=== PATIENT | female | born 1945 | race Two or more races ===

== ENCOUNTER 2018-04-25 20:01 | Inpatient (IN) | payer OTHER ==
[~2018-04-25] VITALS: Ht 160 cm; Wt 89.8 kg
--- NOTE | 2018-04-25 20:15 | NUR ---
Unable to reconcile home medications. No information available, pt unable to provide information.
[2018-04-25] MEDS ORDERED: CIPROFLOXACIN HCL 250 MG TABLET PO ONE (20:30)
[2018-04-25] MEDS ORDERED: CIPROFLOXACIN HCL 250 MG TABLET ONE (20:35)
--- NOTE | 2018-04-25 20:37 | NUR ---
SENTURINE TO LAB ORDERED
[2018-04-25 20:44] LABS: *BILIRUBIN,URIN NEGATIVE (NEGATIVE); *BLOOD, URINE Trace-lysed (NEGATIVE); *CLARITY,URINE CLOUDY (CLEAR); *COLOR,URINE YELLOW (YELLOW); *KETONES,URINE NEGATIVE (NEGATIVE); *PROTEIN,URINE NEGATIVE (NEGATIVE); *UROBILINOGEN,URINE 0.2 E.U./dl (NORMAL); LEUKOCYTE ESTERASE ,URINE TRACE (NEGATIVE); NITRITE, URINE POSITIVE (NEGATIVE); PH,URINE 6.5 (5.0-8.0); UGLUCOSE NEGATIVE (NEGATIVE)
--- NOTE | 2018-04-25 20:46 | NUR ---
MEDICALLY CLEARED BY DR DC
[2018-04-25 20:57] LABS: BACTERIA,URINE MANY /HPF (NONE SEEN); MUCUS,URINE MODERATE /LPF (0-FEW); SQUAMOUS EPITHELIAL CELL,UR FEW /HPF (NONE SEEN)
--- NOTE | 2018-04-25 21:45 | NUR ---
TRANSFERED TO [facility] VIA WHEELCHAIR WITH NO DISTRESS NOTED
[2018-04-25] MEDS ORDERED: MAG HYDROX/AL HYDROX/SIMETH 30 ML LIQUID UDC PO PRN (22:00)
[2018-04-25] MEDS ORDERED: TEMAZEPAM 7.5 MG CAPSULE PO PRN (22:00)
[2018-04-25] MEDS ORDERED: MAGNESIUM HYDROXIDE 30 ML LIQUID UDC PO PRN (22:00)
[2018-04-25] MEDS ORDERED: LORAZEPAM 0.5 MG TABLET PO PRN (22:00)
[2018-04-25] MEDS ORDERED: ACETAMINOPHEN 325 MG TABLET PO PRN (22:00)
[2018-04-25 22:10] VITALS: BP 97/67
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
--- NOTE | 2018-04-26 06:00 | NUR ---
slept 6 hours, total. is now awake. assisted with AM care, and shower. no distress noted.
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
[2018-04-26 07:30] VITALS: BP 103/61
[2018-04-26] MEDS ORDERED: DEXTROSE 50% 50 ML DISP.SYRIN IV PRN (14:15)
[2018-04-26] MEDS: CEPHALEXIN MONOHYDRATE 500 MG CAPSULE PO SCH ×2 (14:25→21:32)
[2018-04-26] MEDS: BLOOD SUGAR DIAGNOSTIC 1 EACH STRIP VI SCH ×2 (16:13→21:44)
[2018-04-26 16:26] VITALS: BP 108/70
[2018-04-26] MEDS: INSULIN REGULAR, HUMAN 300 UNIT/3 ML VIAL SQ PRN ×2 (16:37→21:46)
--- NOTE | 2018-04-26 19:05 | NUR ---
PATIENT RECEIVED IN ROOM, FAMILY AT BEDSIDE. NO DISTRESS NOTED. ON KEFLEX 500MG BID FOR UTI. COMPLIANT WITH MEDICATIONS. BLOOD SUGAR 197 3 UNITS OF INSULIN COVERAGE GIVEN, WELL TOLERATED. ALL NEEDS ATTENDED AND ANTICIPATED. WILL CONTINUE TO MONITOR CLOSELY.
[2018-04-26 21:25] VITALS: BP 106/60
[2018-04-26] MEDS: BENZTROPINE MESYLATE 0.5 MG TABLET PO SCH (21:32)
[2018-04-26] MEDS: risperiDONE-M 0.5 MG TAB.RAPDIS PO SCH (21:32)
--- NOTE | 2018-04-26 22:00 | NUR ---
received to care, asleep, in bed, but easy to awaken. remains calm. compliant with medications and staff direction. as of 2199, she appears to be asleep. no distress noted. will continue to monitor closely.
[2018-04-27] MEDS: BLOOD SUGAR DIAGNOSTIC 1 EACH STRIP VI SCH ×4 (06:32→21:20)
--- NOTE | 2018-04-27 06:46 | NUR ---
slept 8.0 hours total.
[2018-04-27 07:00] LABS: BASOPHILS # (AUTO) 0.1 K/uL (0.0-8.0); BASOPHILS % (AUTO) 0.9 % (0.0-2.0); EOSINOPHILS # (AUTO) 0.3 K/uL (0.0-0.7); HEMATOCRIT 44.5 % (31.2-41.9); HEMOGLOBIN 15.1 g/dL (10.9-14.3); LYMPHOCYTES # (AUTO) 2.6 K/uL (20.0-40.0); LYMPHOCYTES % (AUTO) 43.6 % (20.5-51.5); MEAN CORPUSCULAR HEMOGLOBIN 30.7 uug (24.7-32.8); MEAN CORPUSCULAR HGB CONC 34 g/dL (32.3-35.6); MEAN CORPUSCULAR VOLUME 90.4 fL (75.5-95.3); MONOCYTES # (AUTO) 0.5 K/uL (2.0-10.0); MONOCYTES % (AUTO) 8.8 % (0.0-11.0); NEUTROPHILS # (AUTO) 2.5 K/uL (1.8-8.9); NEUTROPHILS % (AUTO) 41.7 % (38.5-71.5); PLATELET COUNT (AUTO) 181 K/uL (179-408); RED BLOOD CELL COUNT(AUTO) 4.92 MIL/uL (3.63-4.92); WHITE BLOOD COUNT (AUTO) 6.1 K/uL (3.8-11.8)
[2018-04-27 07:06] LABS: CARBON DIOXIDE 31 mmol/L (21-32); CHLORIDE 105 mmol/L (98-107); CREATININE 0.9 mg/dL (0.6-1.3); GLUCOSE 156 mg/dL (74-106); UREA NITROGEN, BLOOD 16 mg/dL (7-18)
[2018-04-27 07:30] VITALS: BP 116/71
[2018-04-27] MEDS: CEPHALEXIN MONOHYDRATE 500 MG CAPSULE PO SCH ×2 (08:46→20:15)
--- NOTE | 2018-04-27 10:30 | NUR ---
Gps/Disintegrator- Urine culture with E.coli , results and sensitivity reviewed w/ Ray Rowland IMAGING TECHNICIAN, bassem ok .
[2018-04-27] MEDS: INSULIN REGULAR, HUMAN 300 UNIT/3 ML VIAL SQ PRN ×2 (12:06→21:22)
--- NOTE | 2018-04-27 15:22 | NUR ---
Initial DC Plan: Patient currently lives at home with her daughter Renuka [[facility] [place] [address]; [phone]]. Patient's daughter stated she will roll picker patient when she is ready for discharge. SW will follow up with MD, patient, and patient's daughter to discuss most appropriate dsicharge plans. SW will form a safe and proper discharge.
--- NOTE | 2018-04-27 15:29 | NUR ---
Firearms Reporting: MYANOR submitted Mental Health Report to [facility] on 04/27.
[2018-04-27 15:44] VITALS: BP 128/62
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
[2018-04-27] MEDS: BENZTROPINE MESYLATE 0.5 MG TABLET PO SCH (20:15)
[2018-04-27] MEDS: risperiDONE-M 0.5 MG TAB.RAPDIS PO SCH (20:15)
[2018-04-27 20:29] VITALS: BP 119/66
[2018-04-28] MEDS: BLOOD SUGAR DIAGNOSTIC 1 EACH STRIP VI SCH ×4 (06:34→20:37)
--- NOTE | 2018-04-28 06:54 | NUR ---
Pt slept 8 hrs, calm and cooperative. Had shower in AM. Safety measures maintained.
--- NOTE | 2018-04-28 07:21 | NUR ---
BG 151. Endorsed to am nurse.
[2018-04-28 07:30] VITALS: BP 99/68
[2018-04-28] MEDS: INSULIN REGULAR, HUMAN 300 UNIT/3 ML VIAL SQ PRN ×4 (08:25→20:38)
[2018-04-28] MEDS: CEPHALEXIN MONOHYDRATE 500 MG CAPSULE PO SCH ×2 (08:27→20:36)
[2018-04-28 15:29] VITALS: BP 104/63
--- NOTE | 2018-04-28 17:41 | NUR ---
Gps/Bus Cleaner- Quiet, remains in her room most of the afternoon, guarded ,encouraged participation in her group tx.Patients' daughter Renuka called, was able to talked to the patient, will be in monday to visit .
[2018-04-28] MEDS: BENZTROPINE MESYLATE 0.5 MG TABLET PO SCH (20:36)
[2018-04-28] MEDS: risperiDONE-M 0.5 MG TAB.RAPDIS PO SCH (20:36)
[2018-04-29] MEDS: BLOOD SUGAR DIAGNOSTIC 1 EACH STRIP VI SCH ×4 (06:41→21:23)
[2018-04-29 07:30] VITALS: BP 105/60
[2018-04-29] MEDS: CEPHALEXIN MONOHYDRATE 500 MG CAPSULE PO SCH ×2 (08:21→21:22)
[2018-04-29] MEDS: INSULIN REGULAR, HUMAN 300 UNIT/3 ML VIAL SQ PRN ×3 (08:33→17:05)
[2018-04-29 15:33] VITALS: BP 113/80
--- NOTE | 2018-04-29 16:29 | NUR ---
Gps/Legal Records Manager- Remains quiet in her room, guarded , sitting on her chair most of the afternoon , noticed occ. blank stares, denies hearing voices.
[2018-04-29 20:00] VITALS: BP 110/68
[2018-04-29] MEDS: risperiDONE-M 0.5 MG TAB.RAPDIS PO SCH (21:22)
[2018-04-29] MEDS: BENZTROPINE MESYLATE 0.5 MG TABLET PO SCH (21:22)
--- NOTE | 2018-04-29 22:50 | NUR ---
RECEIVED PATIENT IN BED .SHE IS QUIET, GUARDED AND MILDLY WITHDRAWN.SHE ALTERNATES BETWEEN SITTING IN HER CHAIR AND LAYING DOWN IN BED. SHE DENIES HEARING VOICES. SHE IS COMPLIANT WITH HER ORAL MEDS BUT REFUSED TO TAKE HER INSULIN COVERAGE. RISK AND BENEFIT EXPLAINED. WILL CONTINUE TO MONITOR.
[2018-04-30] MEDS: INSULIN REGULAR, HUMAN 300 UNIT/3 ML VIAL SQ PRN ×5 (00:36→20:56)
--- NOTE | 2018-04-30 06:35 | NUR ---
SHE SLEPT INTERMITTENTLY FOR APPROX.5HRS. INITIALLY REFUSED HER INSULIN COVERAGE. SHE HOWEVER MADE NO COMPLIANT OF PAIN OR DISCOMFORT. WILL CONTINUE TO MONITOR
[2018-04-30] MEDS: BLOOD SUGAR DIAGNOSTIC 1 EACH STRIP VI SCH ×4 (06:48→20:29)
[2018-04-30 07:30] VITALS: BP 104/84
[2018-04-30] MEDS: CEPHALEXIN MONOHYDRATE 500 MG CAPSULE PO SCH ×2 (08:43→20:57)
[2018-04-30] MEDS ORDERED: risperiDONE-M 0.5 MG TAB.RAPDIS PO SCH ×2 (09:00→21:00)
[2018-04-30] MEDS ORDERED: risperiDONE-M 0.5 MG TAB.RAPDIS PO ONE (15:30)
[2018-04-30] MEDS: DIVALPROEX 125 MG TABLET.DR PO SCH (16:19)
[2018-04-30 16:20] VITALS: BP 129/82
[2018-04-30] MEDS ORDERED: DIVALPROEX 250 MG TABLET.DR PO SCH (17:00)
[2018-04-30 19:45] VITALS: BP 114/68
[2018-04-30] MEDS: BENZTROPINE MESYLATE 0.5 MG TABLET PO SCH (20:57)
[2018-04-30] MEDS: risperiDONE-M 0.5 MG TAB.RAPDIS PO SCH (20:57)
[2018-05-01] MEDS: BLOOD SUGAR DIAGNOSTIC 1 EACH STRIP VI SCH ×4 (06:35→21:20)
--- NOTE | 2018-05-01 07:09 | NUR ---
Pt SLEPT WELL THROUGHOUT THE NIGHT, WOKE UP TO SHOWER THIS MORNING. CONTINUES TO BE COMPLIANT AND COOPERATIVE. BLOOD SUGAR OF 170, WILL ENDORSE TO DAY SHIFT NURSE.
[2018-05-01 07:30] VITALS: BP 97/63
[2018-05-01 08:09] LABS: ALANINE AMINOTRANSFERASE 39 U/L (14-59); ALKALINE PHOSPHATASE 117 U/L (50-136); ASPARTATE AMINOTRANSFERASE 23 U/L (15-37); BILIRUBIN,TOTAL 0.6 mg/dL (0.2-1.0); CARBON DIOXIDE 27 mmol/L (21-32); CHLORIDE 104 mmol/L (98-107); CREATININE 0.9 mg/dL (0.6-1.3); GLUCOSE 174 mg/dL (74-106); POTASSIUM 4.1 mmol/L (3.5-5.1); TOTAL PROTEIN, SERUM 7.7 g/dL (6.4-8.2); UREA NITROGEN, BLOOD 19 mg/dL (7-18)
[2018-05-01] MEDS: CEPHALEXIN MONOHYDRATE 500 MG CAPSULE PO SCH ×2 (08:27→21:12)
[2018-05-01] MEDS: risperiDONE-M 0.5 MG TAB.RAPDIS PO SCH ×2 (08:27→21:12)
[2018-05-01] MEDS: DIVALPROEX 125 MG TABLET.DR PO SCH ×3 (08:27→17:25)
[2018-05-01] MEDS: INSULIN REGULAR, HUMAN 300 UNIT/3 ML VIAL SQ PRN ×4 (08:30→21:36)
--- NOTE | 2018-05-01 10:07 | NUR ---
UR Note: MAYNOR faxed patient's most recent clinicals to NIGEL Sexton at [facility] [[phone] FAX# [phone]]. Awaiting authorization. MAYNOR will follow up.
[2018-05-01 16:02] VITALS: BP 101/76
[2018-05-01 20:41] VITALS: BP 129/76
[2018-05-01] MEDS: BENZTROPINE MESYLATE 0.5 MG TABLET PO SCH (21:12)
--- NOTE | 2018-05-01 22:00 | NUR ---
received to care, siting in her room, interacting with peer. remains calm. compliant with medications and staff direction. as of 2199, she appears to be asleep. no distress noted. will continue to monitor closely.
--- NOTE | 2018-05-02 06:00 | NUR ---
slept 7.0 hours total. continues to sleep. no distress noted.
[2018-05-02] MEDS: BLOOD SUGAR DIAGNOSTIC 1 EACH STRIP VI SCH ×3 (06:14→16:30)
[2018-05-02 07:30] VITALS: BP 113/59
[2018-05-02] MEDS: INSULIN REGULAR, HUMAN 300 UNIT/3 ML VIAL SQ PRN ×2 (09:31→12:04)
[2018-05-02] MEDS: DIVALPROEX 125 MG TABLET.DR PO SCH ×3 (09:31→16:41)
[2018-05-02] MEDS: CEPHALEXIN MONOHYDRATE 500 MG CAPSULE PO SCH (09:32)
[2018-05-02] MEDS: risperiDONE-M 0.5 MG TAB.RAPDIS PO SCH (09:32)
--- NOTE | 2018-05-02 11:32 | NUR ---
DC Note: Patient will be discharged home with her daughter Renuka [[address] [place] [address]. [facility] [address]; [phone]]. SW spoke with Renuka [[phone]] who stated she will molded goods spot picker patient between 3pm and 4pm. Patient is aware and agreeable to discharge plans. Patient denies SI and HI. Patient will follow up with her public relations officer Dr. Styles [[address] [facility] [place] [address]; [phone]]. Patient has a psychiatry appointment with Adam Hammond NP on May 10 at 2pm [[address] [place] [address]; [phone]] and a therapy appointment with Shreya Victoria LCSW on May 03 at 1:45pm [[address] [facility] [place] [address]; [phone]]. Patient was provided with additional outpatient mental health resources to [facility] , [facility] Woody , and the National Suicide Prevention Lifeline . SW also offered caregiving and home health resources to patient's daughter. However, daughter stated this was not needed at this time.
[2018-05-02 15:49] VITALS: BP 108/64
--- NOTE | 2018-05-02 17:02 | NUR ---
GPS/RN - Patient was discharged to home via private car accompanied by daughter. Discharge instructions given, instructed patient's daughter to follow up with Psychiatrist, appointment made by MAYNOR was also instructed. Prescriptions given to daughter, instructed to pear picker at the pharmacy prior to home. Instructed daughter about importance of antibiotic therapy and completion of treatment, also instructed on possible side effects of all medications as ordered. Able to verbalized understanding. Left the hospital in stable condition.
--- NOTE | 2018-05-02 17:18 | NUR ---
Patient is being discharged home and being picked up by her Daughter Renuka. Pt is confused and disoriented as per base line. VS are stable, no agitation. Discharge instructions including follow up appointments were given to the daughter, who verbalizes understanding. All belongings returned.
== END 2018-05-02 17:21 | disposition home or self-care (01) | DRG 885 ==
LOC: ER 20:05 → GPS 21:28
PROVIDERS: ADMIT Psychiatry & Neurology Psychosomatic Medicine; ATTEND Nurse Practitioner Acute Care
DX: F20.9 Schizophrenia, unspecified (principal); F01.51 Vascular dementia, unspecified severity, with behavioral disturbance; N30.00 Acute cystitis without hematuria; B96.20 Unspecified Escherichia coli [E. coli] as the cause of diseases classified elsewhere; E66.9 Obesity, unspecified; Z68.35 Body mass index [BMI] 35.0-35.9, adult; Z71.3 Dietary counseling and surveillance; E78.5 Hyperlipidemia, unspecified; I10 Essential (primary) hypertension; I70.0 Atherosclerosis of aorta; Z91.14 Patient's other noncompliance with medication regimen; E11.9 Type 2 diabetes mellitus without complications
CPT/HCPCS: 36415; 71045; 85025; 87077; 87086; 93005; A4663; J1815